=== PATIENT | female | born 1955 | race Caucasian/White ===

== ENCOUNTER → 2016-07-01 | Outpatient (CLI) | payer BC, OTHER ==
--- NOTE | 2016-07-01 17:01 | Diagnostic Imaging Report ---
PROCEDURE: US left lower extremity venous. INDICATION: Leg pain TECHNIQUE: Grayscale with color-flow and Doppler waveform evaluation of the left lower extremity deep venous system. CORRELATION STUDY: None FINDINGS: Color and grayscale sonographic images demonstrate no intraluminal defect within the visualized portion of the common femoral, superficial femoral and/or popliteal veins to suggest thrombus formation. These vessels demonstrate normal response to compression and augmentation. 2.2 x 0.7 x 1.4 cm fluid collection left popliteal fossa, may reflect a Ramos's cyst. IMPRESSION: 1. Negative for deep venous thrombosis of the left leg. Dictated by: Dictated on workstation # [id number]
== END ==
LOC: RAD 16:08
PROVIDERS: ATTEND Nurse Practitioner Family
DX: M79.662 Pain in left lower leg (principal); M79.89 Other specified soft tissue disorders